=== PATIENT | male | born 1950 | race Caucasian/White ===

== ENCOUNTER 2019-09-04 19:32 | Inpatient (IN) | payer BC ==
[~2019-09-04 19:32] MED LIST: Heparin 10,000 UNITS/ 10 ML VIAL ONE; Nitroglycerin 0.4 MG TAB (25 Tab Bottle) ONE
[2019-09-04 19:53] LABS: #Basophils 0.1 thou/uL (0.0-0.2); #Eosinphils 0.7 thou/uL (0.0-0.7); #Lymphocytes 3.9 thou/uL (1.20-3.40); #Monocytes 0.9 thou/uL (0.11-0.59); #Neutrophils 5.4 thou/uL (1.40-6.50); %Basophils 0.6 % (0.0-1.0); %Eosinophils 6.6 % (0.0-10.0); %Lymphocytes 35.8 % (21.0-51.0); %Monocytes 8.2 % (0.0-10.0); %Neutrophils 48.7 % (42.0-75.0); Hemoglobin 16.6 g/dL (14.0-18.0); Mean Corpuscular Hemoglobin 30.9 pg (27.0-31.0); Mean Corpuscular Volume 90.9 fL (78.0-98.0); Mean Platelet Volume 6.9 fL (7.4-10.4); Platelet Count 310 thou/uL (130-400); RBC Distribution Width 11.6 % (11.5-14.5); Red Blood Cell (RBC) Count 5.36 mill/uL (4.70-6.10)
[2019-09-04] MEDS ORDERED: Verapamil 5 MG/2 ML VIAL ONE (20:05)
[2019-09-04] MEDS ORDERED: Nitroglycerin 100MG/250ML BOT 0 ML ONE (20:05)
[2019-09-04] MEDS ORDERED: Adenosine 6 MG/2 ML VIAL ONE (20:05)
[2019-09-04] MEDS ORDERED: Midazolam HCl 2 mg/2 ml Vial ONE (20:11)
[2019-09-04] MEDS ORDERED: Fentanyl 100 MCG/2 ML VIAL ONE (20:11)
--- NOTE | 2019-09-04 20:14 | RAD ---
CHEST ONE VIEW: History: Cough Comparison: 07-10-17 FINDINGS: Cardiac silhouette and pulmonary vasculature are unremarkable. Mediastinum is midline. No confluent a irspace consolidation or evidence of pneumothorax. Calcified pleura over the diaphragm is stable. Post-operative changes left axilla are again demonstrated. IMPRESSION: No active cardiopulmonary abnormalities demonstrated. POS: BST
[2019-09-04 20:41] LABS: CKMB 1.3 ng/mL (0-6.6)
[2019-09-04] MEDS ORDERED: Heparin 10,000 UNITS/1 ML VIAL ONE (20:54)
[2019-09-04 21:00] LABS: ALT (SGPT) 32 U/L (8-55); AST (SGOT) 22 U/L (5-34); Albumin 3.9 g/dL (3.4-4.8); Alkaline Phosphatase 68 U/L (40-110); Anion Gap 19 mmol/L (10-20); BUN (Urea Nitrogen) 16 mg/dL (8.4-25.7); Bilirubin, Total 0.4 mg/dL (0.2-1.2); CK (CPK) 56 U/L (30-200); Calc. Creatinine Clearance 0 mL/min (70-130); Calcium 8.7 mg/dL (7.8-10.44); Carbon Dioxide 18 mmol/L (23-31); Chloride 105 mmol/L (98-107); Estimated GFR-MDRD 75; Globulin 3.1 g/dL (2.4-3.5); Glucose 133 mg/dL (80-115); Lipase 44 U/L (8-78); Potassium 3.5 mmol/L (3.5-5.1); Sodium 138 mmol/L (136-145)
[2019-09-04] MEDS ORDERED: Clopidogrel Bisulfate 300 MG TAB ONE (21:27)
[2019-09-04] MEDS ORDERED: Nitroglycerin 100MG/250ML BOT 250 ML ONE (21:37)
[2019-09-04] MEDS ORDERED: Nitroglycerin 50 MG/250 ML BOT 250 ML ONE (21:37)
[2019-09-04] MEDS ORDERED: Aggrastat 12.5 MG/250 ML 250 ML ONE (21:38)
[2019-09-04] MEDS ORDERED: Milk Of Magnesia 30 ML UDCUP PO PRN (22:30)
[2019-09-04] MEDS ORDERED: Aggrastat 12.5 MG/250 ML 250 ML IVPB SCH (22:30)
[2019-09-04] MEDS ORDERED: Morphine 2 MG/ML SYRINGE SLOW IVP PRN (22:30)
[2019-09-04] MEDS: Sodium Chloride 0.9% 1,000 ML IV SCH (22:33)
[2019-09-04 22:50] VITALS: BMI 51.7
[2019-09-04 23:30] LABS: CKMB 14.7 ng/mL (0-6.6); Troponin I 1.276 ng/mL (< 0.028)
[2019-09-04] MEDS ORDERED: Furosemide 20 MG/2 ML VIAL SLOW IVP SCH (23:30)
[2019-09-04] MEDS ORDERED: Nitroglycerin 50 MG/250 ML BOT 250 ML IVPB SCH (23:30)
[2019-09-05 05:06] LABS: #Lymphocytes 1.6 thou/uL (1.20-3.40); #Monocytes 0.9 thou/uL (0.11-0.59); #Neutrophils 11.7 thou/uL (1.40-6.50); %Basophils 0.2 % (0.0-1.0); %Eosinophils 0.3 % (0.0-10.0); %Lymphocytes 11.4 % (21.0-51.0); %Monocytes 6.3 % (0.0-10.0); %Neutrophils 81.9 % (42.0-75.0); Hemoglobin 15.5 g/dL (14.0-18.0); Mean Corpuscular HGB CONC 33.4 g/dL (32.0-36.0); Mean Corpuscular Hemoglobin 30.1 pg (27.0-31.0); Mean Platelet Volume 6.9 fL (7.4-10.4); Platelet Count 336 thou/uL (130-400); RBC Distribution Width 11.8 % (11.5-14.5); Red Blood Cell (RBC) Count 5.14 mill/uL (4.70-6.10); White Blood Cell (WBC) Count 14.3 thou/uL (4.8-10.8)
[2019-09-05 05:08] LABS: ALT (SGPT) 49 U/L (8-55); AST (SGOT) 151 U/L (5-34); Albumin 3.6 g/dL (3.4-4.8); Alkaline Phosphatase 63 U/L (40-110); Anion Gap 13 mmol/L (10-20); BUN (Urea Nitrogen) 14 mg/dL (8.4-25.7); Bilirubin, Total 0.5 mg/dL (0.2-1.2); Calc. Creatinine Clearance 85 mL/min (70-130); Calcium 8.7 mg/dL (7.8-10.44); Carbon Dioxide 22 mmol/L (23-31); Chloride 105 mmol/L (98-107); Estimated GFR-MDRD 85; Globulin 3.1 g/dL (2.4-3.5); Glucose 137 mg/dL (80-115); Potassium 3.4 mmol/L (3.5-5.1); Protein, Total 6.7 g/dL (5.8-8.1); Sodium 137 mmol/L (136-145)
[2019-09-05 05:35] LABS: CKMB 216.1 ng/mL (0-6.6); Troponin I 22.176 ng/mL (< 0.028)
[2019-09-05] MEDS: Carvedilol 6.25 MG TAB PO SCH ×2 (09:13→21:05)
[2019-09-05] MEDS: Aspirin Chewable 81 MG TAB PO SCH (09:14)
[2019-09-05 09:49] LABS: CKMB 230.5 ng/mL (0-6.6)
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
[2019-09-05 15:39] LABS: CKMB 154.7 ng/mL (0-6.6); Troponin I 28.955 ng/mL (< 0.028)
[2019-09-05] MEDS: Nitroglycerin 0.4 MG TAB (25 Tab Bottle) SL PRN ×2 (16:22→16:38)
[2019-09-05] MEDS ORDERED: Morphine 2 MG/ML SYRINGE SLOW IVP SCH (16:30)
[2019-09-05] MEDS ORDERED: Fentanyl 100 MCG/2 ML VIAL SLOW IVP PRN (17:03)
[2019-09-05] MEDS ORDERED: Sodium Chloride 0.9% 500 ML IV SCH (17:15)
[2019-09-05] MEDS ORDERED: Enoxaparin Sodium 80 MG/0.8 ML SYRINGE SC SCH (17:15)
[2019-09-05] MEDS: Sodium Chloride 0.9% 1,000 ML IV SCH (17:27)
--- NOTE | 2019-09-05 17:56 | PRG ---
DATE OF SERVICE: 09/05/2019 SUBJECTIVE: Mr. Monroe has had intermittent issues throughout the day. He is continuing to have chest pain, which is felt to be mild. It has waxed and waned. It is felt to be intermittently positional as well as worse with deep breath. I evaluated Mr. Monroe three separate times today. This last time during this evening, Mr. Monroe had nausea and vomiting after receiving morphine for pain. His nitroglycerin had been stopped. His Aggrastat had also been stopped to remove the sheath. Mr. Monroe's CK-MB continues to trend downward. His troponin peaked at 28 and his CK-MB peaked at 230 and is down to 154. His EKG this afternoon showed anteroseptal infarct with no acute ST-T wave changes. The patient is currently feeling better. PHYSICAL EXAMINATION: GENERAL: Patient is a pleasant male, who is in no acute distress. The patient appears their stated age. VITAL SIGNS: Initially blood pressure 80/60. Current blood pressure 140/100 after IV fluids. NEUROLOGIC: The patient is alert and oriented x3 with no focal neurologic deficits. HEENT: Sclerae without icterus. Mouth has moist mucous membranes with normal pallor. NECK: No JVD. Carotid upstroke brisk. No bruits bilaterally. LUNGS: Clear to auscultation with unlabored respirations. BACK: No scoliosis or kyphosis. CARDIAC: Regular rate and rhythm with normal S1 and S2. No S3 or S4 noted. No significant rubs, murmurs, thrills, or gallops noted throughout the precordium. PMI is not displaced. There is no parasternal heave. ABDOMEN: Soft, nontender, nondistended. No peritoneal signs present. No hepatosplenomegaly. No abnormal striae. EXTREMITIES: 2+ femoral and 2+ dorsalis pedis pulses. No cyanosis, clubbing, or edema. SKIN: No gross abnormalities. PERTINENT LABORATORY DATA: As above. IMPRESSION: 1. Acute myocardial infarction. 2. Severe multivessel disease. RECOMMENDATIONS: I spent much time today discussing the case with Dr. Severiano Dumont, Dr. Zechariah Duron in addition to Dr. Wilbur Montero. It appears options are limited. Mr. Monroe is a bilateral amputee, so his vein grafts are limited to bypass surgery. He may be having pain from the subtotal diagonal branch after stenting over the diagonal branch. The vessel was rewired 5 to 6 different times and the smallest balloon available would not pass into the diagonal branch, likely due to stress at the opening. His pain today may be unrelated to his underlying coronary artery disease, but if it is related, maybe related to his circumflex artery or diagonal branch. The circumflex artery is also very difficult to approach due to calcification, tortuosity, and close to the ostium. an OM branch, which could cause a worsening DC. At this point, again, options are limited and we would prefer continued medical therapy. If high-risk intervention may be difficult due to tortuous iliac arteries in addition to likely PAD. He did have difficulty on placement of wire both on the left and right side with tortuosity noted. I did discuss this with the patient. He is feeling better this afternoon. We will give Lovenox in addition to restarting IV nitro. I did spend 45 minutes critical care time at Mr. Monroe's bedside today. Job ID: [id number]
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
[2019-09-05] MEDS ORDERED: Atorvastatin Calcium 40 MG TAB PO SCH (21:00)
[2019-09-05 21:06] VITALS: BP 91/60
[2019-09-05] MEDS: Fentanyl 100 MCG/2 ML VIAL SLOW IVP PRN ×2 (22:25→23:26)
[2019-09-06] MEDS: Fentanyl 100 MCG/2 ML VIAL SLOW IVP PRN (00:50)
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
[2019-09-06 07:26] LABS: #Lymphocytes 1.8 thou/uL (1.20-3.40); #Monocytes 1.4 thou/uL (0.11-0.59); #Neutrophils 14.3 thou/uL (1.40-6.50); %Basophils 0.2 % (0.0-1.0); %Eosinophils 0.2 % (0.0-10.0); %Neutrophils 81.6 % (42.0-75.0); Hemoglobin 13.5 g/dL (14.0-18.0); Mean Corpuscular Hemoglobin 30.9 pg (27.0-31.0); Mean Corpuscular Volume 90.8 fL (78.0-98.0); Platelet Count 243 thou/uL (130-400); RBC Distribution Width 11.6 % (11.5-14.5); Red Blood Cell (RBC) Count 4.39 mill/uL (4.70-6.10); White Blood Cell (WBC) Count 17.6 thou/uL (4.8-10.8)
[2019-09-06 07:53] LABS: Anion Gap 11 mmol/L (10-20); BUN (Urea Nitrogen) 12 mg/dL (8.4-25.7); Calc. Creatinine Clearance 90 mL/min (70-130); Carbon Dioxide 23 mmol/L (23-31); Chloride 104 mmol/L (98-107); Estimated GFR-MDRD Greater than 90; Glucose 137 mg/dL (80-115); Potassium 3.4 mmol/L (3.5-5.1); Sodium 135 mmol/L (136-145)
[2019-09-06 08:03] LABS: CKMB 43.6 ng/mL (0-6.6); Critical Call CKMB RESULT DECREASING; Critical Call Chem Troponin I RESULT DECREASING; Troponin I 20.396 ng/mL (< 0.028)
[2019-09-06] MEDS: Carvedilol 6.25 MG TAB PO SCH (09:10)
[2019-09-06] MEDS: Aspirin Chewable 81 MG TAB PO SCH (09:10)
[2019-09-06] MEDS ORDERED: Enoxaparin Sodium 80 MG/0.8 ML SYRINGE SC SCH ×2 (10:00→21:00)
--- NOTE | 2019-09-06 10:39 | DIS ---
DATE OF ADMISSION: 09/04/2019 DATE OF DISCHARGE: 09/06/2019 CONSULTING PROVIDERS: 1. Zechariah Duron MD. 2. Severiano Dumont MD. PROCEDURE PERFORMED: Coronary angiography with PTCA stent placement to the LAD. HOSPITAL COURSE: Mr. Monroe is a very pleasant 68-year-old gentleman, who was initially evaluated having an acute IN. He underwent an urgent coronary angiography and was found to have severe multivessel disease. He underwent successful stent placement to the LAD. He did have a jailed diagonal branch that could not be revascularized. There were multiple attempts at rewiring the vessel. A 2.0, 1.5, and a 1.2 balloon catheter would not pass into the diagonal branch. He also had severe ostial to proximal disease of the circumflex artery in addition to OM branch. He had disease noted of the ostium of the PDA. After the procedure, he was pain free and did fairly well. His CK-MB peaked at 250 and decreased to 43 on day of discharge. The patient did have an episode of chest pressure, nausea, vomiting yesterday evening. His EKG remained stable. His enzymes continued to downtrend. This morning, he continued to be stable. I did consult with Dr. Zechariah Duron; given double [id number] amputation, there were limited graft options for bypass surgery. I did discuss the case with Dr. Adam Bose at [facility] in [place]. There may be some further options that are needed. I am concerned about recurrent chest pain with Mr. Monroe likely from the diagonal branch or the circumflex artery. He would like to proceed to [facility] to discuss further options if needed. DISCHARGE MEDICATIONS: 1. Aspirin 81 q.a.m. 2. IV nitroglycerin. 3. Carvedilol 3.125 one p.o. b.i.d. 4. Lovenox 80 mg b.i.d. 5. Lipitor 40 at bedtime. DISCHARGE CONDITION: The patient has been stable overnight without any further symptoms and is currently on IV nitroglycerine. I do feel he is okay to transfer by ground to the ICU given he is on IV nitroglycerin. Job ID: [id number]
[2019-09-06 11:11] VITALS: TEMP 98.2
--- NOTE | 2019-09-06 15:56 | PRG ---
DATE OF SERVICE: 09/06/2019 SUBJECTIVE: Ulises Monroe has no complaints. He is tentatively being evaluated to possibly go to [place] for a complicated stenting since he is not a candidate for bypass grafting. OBJECTIVE: GENERAL: He is in no distress. LUNGS: Clear. HEART: Regular rhythm. ABDOMEN: Soft. EXTREMITIES: Without asymmetry. LABORATORY DATA: White count 17.6, hemoglobin 13.5, platelets 243. Electrolytes were essentially unremarkable. Creatinine was 0.84. Troponin plateaued at 20 this morning. He did have some nausea, vomiting, and hypotension last night. It is unclear whether or not this is an anginal equivalent, hence the referral to [place]. He is on nitroglycerin drip this morning and pain free. I believe he is stable for transfer. Job ID: [id number]
[2019-09-06] MEDS ORDERED: Atorvastatin Calcium 40 MG TAB PO SCH (21:00)
--- NOTE | 2019-09-07 10:03 | OP ---
DATE OF PROCEDURE: 09/04/2019 ADDENDUM: After proceeding with diagnostic angiography, the patient was found to have severe multivessel disease. He did have complete occlusion of the LAD. He also had severe stenosis of the proximal to the ostial region of the circumflex artery as well as the OM branch. I discussed the case with Dr. Zechariah Duron. There was initial difficulty on visualization of the ostium of the occluded LAD. I discussed the case with [facility]. I did proceed with percutaneous intervention. The wire was able to be placed into the LAD successfully. There was successful PTCA in addition to a stent placement noted to the LAD. I did wire the diagonal branch in case it was jailed. After placement of the stent, there did appear to be flow noted within the diagonal branch. The wire was then retracted and placed back into what appeared to be the diagonal branch. Postdilatation was performed with a 3.0 balloon catheter. After further assessment, the diagonal wire was placed into a smaller branch. This was then retracted and then placed successfully into the diagonal branch. The diagonal branch was then occluded after postdilatation of the LAD stent. There was SHERRY-0 flow present. I then proceeded to try and balloon the ostium of the diagonal branch. 2.0, 1.5, and 1.2 balloon catheter would not cross into the diagonal branch. I then postdilated the LAD stent once again. There was SHERRY-2 flow present within the diagonal branch, which was improved from previous. The patient had no symptoms at that time. Instead of trying to rewire and balloon after the 1.2 balloon catheter would not cross and SHERRY-2 flow and no symptoms, I decided to not proceed with any further intervention. Job ID: [id number]
== END 2019-09-06 13:30 | disposition short-term general hospital (02) | DRG 247 ==
LOC: ERS 19:32 → CCU 19:58 → CCL 20:45 → CCU 22:07
PROVIDERS: ADMIT Internal Medicine Cardiovascular Disease; ATTEND Internal Medicine Cardiovascular Disease
PROC: 027034Z Dilation of Coronary Artery, One Artery with Drug-eluting Intraluminal Device, Percutaneous Approach (ICD-10-PCS; principal; 2019-09-04)
PROC: B2111ZZ Fluoroscopy of Multiple Coronary Arteries using Low Osmolar Contrast (ICD-10-PCS; 2019-09-04)
DX: I21.09 ST elevation (STEMI) myocardial infarction involving other coronary artery of anterior wall (principal); I10 Essential (primary) hypertension; E66.9 Obesity, unspecified; E78.5 Hyperlipidemia, unspecified; I25.10 Atherosclerotic heart disease of native coronary artery without angina pectoris; R11.2 Nausea with vomiting, unspecified; I95.9 Hypotension, unspecified; Z68.43 Body mass index [BMI] 50.0-59.9, adult; Z89.512 Acquired absence of left leg below knee; Z89.511 Acquired absence of right leg below knee; Z90.49 Acquired absence of other specified parts of digestive tract; Z91.013 Allergy to seafood; Z79.899 Other long term (current) drug therapy
CPT/HCPCS: 36415; 71045; 76942; 80048; 80053; 82550; 82553; 83690; 84484; 85025; 85347; 92928; 93005; 93010; 93306; 93454; 94760; 96374; 99152; 99153; C1874; C9600; J0153; J1644; J1650; J1940; J2250; J2270; J3010; J3246

== ENCOUNTER 2021-10-28 06:11 | Day surgery (SDC) | payer BC ==
[2021-10-24 12:10] VITALS: BMI 20.8
[2021-10-28] MEDS ORDERED: ePHEDrine 50 MG/ML VIAL ONE (08:32)
[2021-10-28] MEDS ORDERED: Phenylephrine 10 MG/ML VIAL ONE (08:32)
[2021-10-28] MEDS ORDERED: PROPOFOL 200 MG/20 ML VIAL ONE (08:32)
[2021-10-28] MEDS ORDERED: Lidocaine 1% PF 5 ML VIAL ONE (08:32)
== END 2021-10-28 10:40 | disposition home or self-care (01) ==
LOC: SDC 06:11
PROVIDERS: ATTEND Internal Medicine
PROC: 0DBN8ZX Excision of Sigmoid Colon, Via Natural or Artificial Opening Endoscopic, Diagnostic (ICD-10-PCS; principal; 2021-10-28)
DX: D12.5 Benign neoplasm of sigmoid colon (principal); K57.30 Diverticulosis of large intestine without perforation or abscess without bleeding; K64.8 Other hemorrhoids; K64.4 Residual hemorrhoidal skin tags; I48.91 Unspecified atrial fibrillation; I50.9 Heart failure, unspecified; Z79.01 Long term (current) use of anticoagulants; Z79.82 Long term (current) use of aspirin; Z79.84 Long term (current) use of oral hypoglycemic drugs; Z79.899 Other long term (current) drug therapy; Z91.013 Allergy to seafood; Z95.810 Presence of automatic (implantable) cardiac defibrillator; Z95.5 Presence of coronary angioplasty implant and graft; Z89.611 Acquired absence of right leg above knee; Z89.612 Acquired absence of left leg above knee
CPT/HCPCS: 88305; J2370; J2704; J3490